=== PATIENT | male | born 1970 | race Caucasian/White ===

== ENCOUNTER 2018-10-31 21:10 | Emergency (ER) | payer OTHER ==
[~2018-10-31] VITALS: Ht 175.3 cm; Wt 66.1 kg
--- NOTE | 2018-10-31 21:17 | NUR ---
PT ARRIVES FROM [facility] (FREE TO LEAVE, [facility] DOES NOT WANT TO ARREST AT THIS TIME ) PT WAS REFUSED BY [facility] DUE TO ETOH INTOXICATION. PT DENIES ANY TRUAMA. PT HAS NO S/SX OF TRUAMA. PT ABLE TO AMBULAT BUT HAS GROSS ETOH SMELL AND SLURRING HIS SPEECH WITHOUT ANY NEURO DEFICETS. PT PLACED IN BED WITH BOTH SIDERAILS UP FOR SAFETY.PT GIVEN CALL LIGHT AND URINAL. PT WOULD LIKE TO BE EVALUATED. AWAITING FURTHER ORDERS.
--- NOTE | 2018-10-31 21:42 | NUR ---
PT GIVEN MEAL, PT VERY HAPPY. PT GIVEN ORAL HYDRATION WELL.
--- NOTE | 2018-10-31 21:48 | NUR ---
BEDSIDE REPORT TO ERVIN
--- NOTE | 2018-10-31 21:56 | NUR ---
ASSUMED CARE OF PATIENT. VS STABLE. CALL LIGHT IN PLACE. PT RESTING IN ROOM. NO ACUTE DISTRESS NOTED. WILL CONTINUE TO MONITOR.
--- NOTE | 2018-10-31 22:47 | NUR ---
PT AMBULATED TO BATHROOM. VS STABLE. PT NOW RESTING IN BED. NO ACUTE DISTRESS NOTED. CALL LIGHT IN PLACE. WILL CONTINUE TO MONITOR.
[2018-10-31] MEDS ORDERED: ONDANSETRON ODT 4 MG PO ONE (23:00)
--- NOTE | 2018-10-31 23:21 | NUR ---
PT RESTING IN ROOM. NO ACUTE DISTRESS NOTED. WILL CONTINUE TO MONITOR.
--- NOTE | 2018-11-01 00:28 | NUR ---
DR SMITH HAS UPDATED PATIENT. AWARE OF HR OF 119. CALL LIGHT IN PLACE. WILL CONTINUE TO MONITOR.
--- NOTE | 2018-11-01 01:13 | NUR ---
PATIENT RESTING IN ROOM. NO ACUTE DISTRESS NOTED. CALL LIGHT IN PLACE. WILL CONTINUE TO MONITOR.
[2018-11-01 02:22] VITALS: BP 117/78
--- NOTE | 2018-11-01 02:22 | NUR ---
PT RESTING IN ROOM. NO ACUTE DISTRESS NOTED. CALL LIGHT IN PLACE. WILL CONTINUE TO MONITOR.
--- NOTE | 2018-11-01 02:54 | NUR ---
PT ABLE TO SAFELY AMBULATE AROUND ROOM. A&O X4 PT HAD A SANDWICH AND CRACKERS. PT DENIES NAUSEA. PT DISCHARGED.
== END 2018-11-01 02:54 | disposition home or self-care (01) ==
LOC: ED 11-01 02:44
DX: F10.120 Alcohol abuse with intoxication, uncomplicated (principal)
CPT/HCPCS: 99283